=== PATIENT | male | born 1965 | race Caucasian/White ===

== ENCOUNTER → 2018-11-01 | Outpatient (CLI) | payer BC ==
--- NOTE | 2018-11-02 08:16 | XR ---
Cervical spine HISTORY: Neck pain 6 views of the cervical spine Patient is status post anterior cervical fusion and discectomy at C6-7. Loss of disc height present C 3-4, C5-6 with associated spondylosis. Cervical vertebral bodies show preserved height and bone salt miner alization. Alignment is near-anatomic. Foraminal encroachment present bilaterally at C3-4, C5-6. Loss of lordosis may be due to muscle spasm. Prevertebral soft tissues are unremarkable. IMPRESSION: Postop changes and degenerative disc disease.
== END | disposition home or self-care (01) ==
LOC: RADXRYALE 16:52
PROVIDERS: ATTEND Physician Assistant
DX: M50.30 Other cervical disc degeneration, unspecified cervical region (principal); Z98.890 Other specified postprocedural states
CPT/HCPCS: 72050

== ENCOUNTER → 2019-02-28 | Outpatient (CLI) | payer BC ==
--- NOTE | 2019-02-28 15:51 | XR ---
EXAMINATION TYPE: XR knee complete LT DATE OF EXAM: 02/28/2019 COMPARISON: NONE HISTORY: Swelling TECHNIQUE: Two views are submitted. FINDINGS: There is narrowing of patellofemoral joint and medial compartment knee joint. No erosive change. Supr apatellar bursal fluid collection noted. Ossification along the quadriceps insertion of the patella.. Osseous structures are intact. No acute fracture seen. IMPRESSION: 1. No acute fracture or dislocation. 2. Large suprapatellar bursal fluid collection. Ossification along the upper margin patella possibly related to quadriceps tendon. Follow-up MRI recommended. 3. Osteoarthritis.
== END | disposition home or self-care (01) ==
LOC: RADXRYALE 15:11
PROVIDERS: ATTEND Physician Assistant Medical
DX: M17.12 Unilateral primary osteoarthritis, left knee (principal); M71.862 Other specified bursopathies, left knee

== ENCOUNTER 2019-03-23 14:36 | Emergency (ER) | payer BC ==
[2019-03-23 14:41] VITALS: BP 109/77; PULSE 109; RESP 18; TEMP 97.8
--- NOTE | 2019-03-23 15:22 | XR ---
Left ankle HISTORY: Pain, history of fracture 3 views of the left ankle There is soft tissue swelling present. Ossific densities present distal to the medial malleolus. Alig nment, joint spaces, bone mineralization maintained. There is a plantar calcaneal spur. There is spur ring at the tibiotalar joint, intertarsal joints. impression: Soft tissue swelling. Ossific fragment distal to the medial malleolus is of questionable acuity. Correlate for point tenderness. Osteoarthritic changes.
[2019-03-23] MEDS ORDERED: ACET/COD 300 MG/30 MG STARTER PACK 6 TAB BTL PO STA (16:03)
--- NOTE | 2019-03-23 16:06 | US ---
EXAMINATION TYPE: US venous doppler duplex LE LT DATE OF EXAM: 03/23/2019 3:57 PM COMPARISON: NONE CLINICAL HISTORY: atraumatic swelling of the left LE.... C/o left ankle pain and swelling SIDE PERFORMED: Left TECHNIQUE: The lower extremity deep venous system is examined utilizing real time linear array sonog nasim with graded compression, doppler sonography and color-flow sonography. VESSELS IMAGED: Common Femoral Vein Deep Femoral Vein Greater Saphenous Vein * Femoral Vein Popliteal Vein Small Saphenous Vein * Proximal Calf Veins (* superficial vessels) Left Leg: Wall echoes are noted at valves at Left CFV and upper Femoral vein and may be stuck valves , otherwise is negative for DVT. There is normal flow, compressibility, vascular waveforms. IMPRESSION: No evident deep venous thrombosis at or above the left knee.
--- NOTE | 2019-03-23 16:26 | ED ---
Lower Extremity Injury HPI - General Chief Complaint: Extremity Injury, Lower Stated Complaint: left ankle injury Source: patient Mode of arrival: wheelchair Limitations: no limitations - History of Present Illness Initial Comments: 54-year-old male presenting today for chief complaint of left ankle swelling x 2 days. Patient states he has history of previous left ankle fracture as well as an ankle spur. He states the past 7-8 years about 3 times a year he has swelling and pain for about 7 days of the left ankle then it goes away. Denies new injury. He also states his history of gout he states he has not had a flare in his great toe and years. Patient denies any prophylactic medications. Patient denies any redness or warmth the ankle denies any fever or flulike symp toms. Patient states is very typical of his recurrent left ankle pain and swelling. Patient denies history of DVT or pulmonary embolism. Denies any history of clotting disorders or pain of the calf. Patient denies chest pain or shortness of breath. Remaining review of system negative. Upon arrival patient appears well no signs of acute distress. - Related Data Previous Rx's Medication Instructions Recorded Naproxen 500 mg PO BID 7 Days #14 tablet 03/23/19 Allergies Allergy/AdvReac Type Severity Reaction Status Date / Time No Known Allergies Allergy Verified 03/23/19 14:41 Review of Systems ROS Statement: Those systems with pertinent positive or pertinent negative responses have been documented in the HPI. ROS Other: All systems not noted in ROS Statement are negative. Past Medical History Past Medical History: Hyperlipidemia, Hypertension History of Any Multi-Drug Resistant Organisms: None Reported Additional Past Surgical History / Comment(s): NECK SURGERY Past Psychological History: No Psychological Hx Reported Smoking Status: Never smoker Past Alcohol Use History: Occasional Past Drug Use History: None Reported General Exam - General Exam Comments Initial Comments: General: The patient is awake and alert, in no distress, and does not appear acutely ill. Eye: pupils are equal, round and reactive to light, extra-ocular movements are intact. No nystagmus. There is normal conjunctiva bilaterally. No signs of icterus. Cardiovascular: There is a regular rate and rhythm. No murmur, rub or gallop is appreciated. Respiratory: Lungs are clear to auscultation, respirations are non-labored, breath sounds are equal. No wheezes, stridor, rales, or rhonchi. Musculoskeletal: Upon inspection of the ankles bilaterally there is soft tissue swelling noted over the ankle mortise of the left ankle. There is no warmth to palpation no redness. No pain out of proportion with both active and passive range of motion however patient does complain of discomfort. No pain of the right ankle. Patient is able to weight-bear. No point localized tenderness over the medial or lateral malleolus. Normal ROM, no tenderness of the knees her great toes. Strength 5/5. Sensation intact both proximal distal to affected site. Radial pulses equal bilaterally 2+. Compartment soft and compressible. Neurological: A&O x 3. CN II-XII intact, There are no obvious motor or sensory deficits. Coordination appears grossly intact. Speech is normal. Skin: Skin is warm and dry and no rashes or lesions are noted. (-) Mariannens b/l. Psychiatric: Cooperative, appropriate mood & affect, normal judgment. Limitations: no limitations Course Vital Signs 03/23/19 14:38 Temperature 97.8 F Pulse Rate 109 H Respiratory 18 Rate Blood Pressure 109/77 O2 Sat by Pulse 97 Oximetry Medical Decision Making - Medical Decision Making 54-year-old male presenting for H Russ left ankle pain. No convincing evidence of infection on physical examination. No redness or warmth. No flank symptoms or other constitutional symptoms patient afebrile upon arrival. Patient states this is identical to his previous exacerbations of left ankle swelling and pain that occurred 3 times a year. Patient has history of fracture as well as bone spur. Patient is not been evaluated by orthopedic surgery. Patient has no tenderness of the calf or history of DVT. Ultrasound revealed no acute DVT imaging studies did reveal a what appeared to be a chip fracture of the medial malleolus however there is no point localized tenderness and patient states he has history of a previous fracture. In addition there is noted to be bone spurring, as well as significant arthritis. At this time is unclear the exact etiology of patient's left ankle swelling most likely inflammatory. Patient be discharged with naproxen and orthopedic surgery follow-up. Return parameters were discussed at length patient verbalizes understanding. Patient has crutches to use at home for ambulation. Discussed case with Dr. Patton prior to discharge. Disposition Clinical Impression: Left ankle swelling, History of gout, Left ankle pain Disposition: HOME SELF-CARE Condition: Good Instructions (If sedation given, give patient instructions): *Surgery [facility] - Ankle Arthroscopy Home Instructions, Swollen Joint (ED) Additional Instructions: Please use medication as discussed. Please follow-up with family doctor in the next 2 days. Please return to emergency room if the symptoms increase or worsen or for any other concerns. Prescriptions: Naproxen 500 mg PO BID 7 Days #14 tablet Is patient prescribed a controlled substance at d/c from ED?: No Referrals: Andres Sommers DO [Primary Care Provider] - 1-2 days Hoang Lilly MD [STAFF PHYSICIAN] - 1-2 days Time of Disposition: 16:25
== END 2019-03-23 16:30 | disposition home or self-care (01) ==
LOC: EC 14:36
DX: M25.572 Pain in left ankle and joints of left foot (principal); M79.89 Other specified soft tissue disorders; M10.9 Gout, unspecified; M19.072 Primary osteoarthritis, left ankle and foot; Z87.81 Personal history of (healed) traumatic fracture
CPT/HCPCS: 99284

== ENCOUNTER → 2019-04-21 | Outpatient (CLI) | payer BC ==
[2019-04-21 20:04] LABS: Appearance,BF Cloudy; Color,BF Yellow; Mononuclear WBC,Body Fluid 17 %; Nucleated Cells, Body Fluid 45800 /uL; Polynuclear WBC,Body Fluid 83 %; RBC, Body Fluid 600 /uL
== END | disposition home or self-care (01) ==
LOC: LABWHC1 15:35
PROVIDERS: ATTEND Physician Assistant
DX: M25.562 Pain in left knee (principal); M23.8X2 Other internal derangements of left knee; E78.5 Hyperlipidemia, unspecified; M17.12 Unilateral primary osteoarthritis, left knee; Z68.37 Body mass index [BMI] 37.0-37.9, adult
CPT/HCPCS: 87070; 87075; 87205; 89050; 89060

== ENCOUNTER 2022-11-25 08:14 | Day surgery (SDC) | payer OTHER ==
[~2022-11-25 08:14] MED LIST: LACTATED RINGERS 1,000 ML IV SCH; LIDOCAINE 1% (10MG/ML) FOR IV START INTRADERMA PRN
[2022-11-25 08:53] VITALS: RESP 16; TEMP 98.3
[2022-11-25] MEDS ORDERED: PROPOFOL 10 MG/ML 20 ML VIAL IV ONE (09:52)
--- NOTE | 2022-11-25 10:05 | P.PCN ---
Date of Procedure: 11/25/22 Procedure(s) Performed: BRIEF HISTORY: Patient is a 57-year-old pleasant white male scheduled for an elective colonoscopy as a part of screening for colon cancer. His last colonoscopy was 10 years ago PROCEDURE PERFORMED: Colonoscopy with snare polyp rectum. PREOPERATIVE DIAGNOSIS: Screening for colon cancer. IV sedation per Anesthesia. PROCEDURE: After informed consent was obtained, the patient, was brought into the endoscopy unit. IV sedation was administered by Anesthesia under continuous monitoring. Digital rectal examination was normal. Initially the Olympus CF-160 flexible video colonoscope was then inserted in the rectum, gradually advanced into the cecum without any difficulty. Careful examination was performed as the scope was gradually being withdrawn. Ileocecal valve and the appendiceal orifice were visualized and appeared normal. Prep was excellent. Mucosa of the cecum, ascending colon, appeared normal. In the transverse colon there was a 5 mm polyp that was removed by snare polypectomy. Rest of the transverse colon, descending colon, sigmoid colon, and rectum appeared normal. Retroflexion was performed in the rectum and no lesions were seen. The patient tolerated the procedure well. IMPRESSION: 5 mm transverse colon polyp status post polypectomy Rest of the colon appeared normal RECOMMENDATIONS: Findings of this examination were discussed with the patient as well as his family.. He was advised to follow with the biopsy sites. The biopsy was adenoma he can have a repeat colonoscopy in 5 years.
[2022-11-25 10:51] VITALS: BP 116/63; PULSE 90
== END 2022-11-25 10:48 | disposition home or self-care (01) ==
LOC: ORWHC2ENDO 08:14
PROVIDERS: ATTEND Internal Medicine Gastroenterology
DX: Z12.11 Encounter for screening for malignant neoplasm of colon (principal); D12.3 Benign neoplasm of transverse colon; I10 Essential (primary) hypertension; E78.5 Hyperlipidemia, unspecified; Z79.899 Other long term (current) drug therapy
CPT/HCPCS: 88305; 45385; J2704

== ENCOUNTER → 2023-01-29 | Outpatient (CLI) | payer OTHER ==
--- NOTE | 2023-01-29 10:32 | XR ---
EXAMINATION TYPE: XR knee complete LT DATE OF EXAM: 01/29/2023 COMPARISON: 02/28/2019 HISTORY: Pain TECHNIQUE: Three views are submitted. FINDINGS: Mild narrowing of the medial compartment of the knee joint. Diffuse osteopenia. Osseous structures a re intact. No acute fracture seen. Ossification along the upper margin patella possibly related to quadriceps tendon. Follow-up MRI recommended. . There is a small suprapatellar bursal fluid collection. IMPRESSION: 1. No acute fracture or dislocation. 2. Moderate osteoarthritis. There is a small amount of suprapatellar bursa which can be associated wi th internal derangement of knee. Consider follow-up MRI.
== END | disposition home or self-care (01) ==
LOC: RADXRYALE 10:04
PROVIDERS: ATTEND Physician Assistant
DX: M17.12 Unilateral primary osteoarthritis, left knee (principal)

== ENCOUNTER 2024-01-26 07:43 | Day surgery (SDC) | payer OTHER ==
[2024-01-25 13:24] VITALS: BMI 33.2
[~2024-01-26 07:43] MED LIST changes: +HYDROmorphone 0.5 MG/0.5 ML SYRINGE IVP PRN; -LACTATED RINGERS 1,000 ML IV SCH; +Pre Op ABX Message 1 EACH MISC MISCELLANE ONE; +droPERidol 5 MG/2 ML VIAL IVP ONE
[2024-01-26 08:17] LABS: Glucose,Whole Blood 111 mg/dL (70-110)
[2024-01-26] MEDS: LACTATED RINGERS 1,000 ML IV SCH (08:20)
[2024-01-26] MEDS: ACETAMINOPHEN TAB 500 MG TAB PO PRN (08:21)
[2024-01-26] MEDS: ONDANSETRON 4 MG/2 ML VIAL IVP ONE (08:22)
[2024-01-26] MEDS: HEPARIN SODIUM,PORCINE 5,000 UNIT/ML 1 ML VIAL SQ PRN (08:23)
[2024-01-26] MEDS: IV FLUID CONTINUATION 1,000 ML IV ONE (08:24)
--- NOTE | 2024-01-26 08:48 | P.GSHP ---
History of Present Illness H&P Date: 01/26/24 Chief Complaint: last posterior cervical lymph node this is a 4-year-old male who has a left posterior cervical lymph node which enlarged. Patient resents today for excisional biopsy. Past Medical History Past Medical History: Hyperlipidemia, Hypertension History of Any Multi-Drug Resistant Organisms: None Reported Additional Past Surgical History / Comment(s): NECK SURGERY Past Anesthesia/Blood Transfusion Reactions: No Reported Reaction Past Drug Use History: None Reported - Past Family History Mother Family Medical History: No Reported History Medications and Allergies Home Medications Medication Instructions Recorded Confirmed Type Rosuvastatin Calcium 40 mg PO DAILY 11/21/22 01/26/24 History carvediloL [Coreg] 25 mg PO BID 11/21/22 01/26/24 History Empagliflozin [Jardiance] 10 mg PO DAILY 01/25/24 01/26/24 History Allergies Allergy/AdvReac Type Severity Reaction Status Date / Time No Known Allergies Allergy Verified 01/26/24 07:56 Surgical - Exam Vital Signs Temp Pulse Resp BP Pulse Ox 97.5 F L 73 18 144/85 96 01/26/24 07:57 01/26/24 07:57 01/26/24 07:57 01/26/24 07:57 01/26/24 07:57 - General well developed, well nourished, no distress - Eyes PERRL - ENT normal pinna - Neck 3 cm left posterior cervical lymph node enlarged - Respiratory normal expansion - Cardiovascular Rhythm: regular - Abdomen Abdomen: soft, non tender Results - Labs Abnormal Lab Results - Last 24 Hours (Table) 01/26/24 Range/Units 08:14 POC Glucose (mg/dL) 111 H (70-110) mg/dL Assessment and Plan Assessment: left posterior cervical lymph node. We'll perform excisional biopsy
[2024-01-26] MEDS: LIDOCAINE 2%-EPI 1:100,000 20 ML VIAL SQ ONE ×2 (09:16→09:48)
[2024-01-26] MEDS ORDERED: MIDAZOLAM 2 MG/2 ML VIAL ONE (09:19)
[2024-01-26] MEDS ORDERED: PHENYLEPHRINE 10 MG/ML VIAL ONE (09:19)
[2024-01-26] MEDS ORDERED: PROPOFOL 10 MG/ML 20 ML VIAL IV ONE (09:19)
[2024-01-26] MEDS ORDERED: LIDOCAINE 1% INJ 10MG/ML (20 ML MDV) ONE (09:19)
[2024-01-26] MEDS ORDERED: fentaNYL (PF) 50 MCG/ML 2 ML AMP ONE (09:19)
--- NOTE | 2024-01-26 09:58 | P.OP ---
Date of Procedure: 01/26/24 Preoperative Diagnosis: left posterior cervical lymphadenopathy Postoperative Diagnosis: defer to pathology Procedure(s) Performed: excision of left posterior cervical lymphadenopathy Anesthesia: LAZARO Surgeon: Eugene Casas Estimated Blood Loss (ml): 3 Pathology: other (lymph node) Condition: stable Disposition: PACU Description of Procedure: the patient's placed on the operative table in the lateral position after receiving general anesthesia. His posterior neck was prepped and draped usual fashion. The skin was incised in elliptical. Then using blunt and sharp dissection with cautery the lymph node was dissected free. Hemostasis was achieved with cautery. The skin was closed interrupted 3-0 Monocryl suture. Dermabond dressing applied. Patient top she will present to recovery in stable condition.
[2024-01-26 10:03] VITALS: TEMP 97.3
[2024-01-26 10:39] VITALS: RESP 16
[2024-01-26 10:56] VITALS: BP 147/85; PULSE 69
== END 2024-01-26 11:03 | disposition home or self-care (01) ==
LOC: OR 07:43
PROVIDERS: ATTEND Surgery
DX: R59.0 Localized enlarged lymph nodes (principal); E78.5 Hyperlipidemia, unspecified; I10 Essential (primary) hypertension; Z79.84 Long term (current) use of oral hypoglycemic drugs; Z79.899 Other long term (current) drug therapy
CPT/HCPCS: 88305; 38510; J2250; J1644; J2405; J2001; J3010; J2704; J2371

== ENCOUNTER → 2024-11-15 | Outpatient (CLI) | payer OTHER ==
--- NOTE | 2024-11-15 16:19 | XR ---
EXAMINATION TYPE: XR lumbosacral spine min 4V DATE OF EXAM: 11/15/2024 4:09 PM INDICATION: Patient age:Male; 59 years old; Reason for study: [id number] LBP; [facility]. pain COMPARISON: None TECHNIQUE: Frontal, lateral , bilateral oblique and coned in L5-S1 lateral views of the spine. FINDINGS: There are 5 lumbar type vertebral bodies identified. No evidence of any acute osseous patho logy. No evidence of loss of vertebral body height is seen. There is normal alignment of the lumbar vertebral bodies. Multilevel disc space narrowing with endplate sclerosis and anterior osteophytosis. IMPRESSION: 1. No acute process. 2. Mild multilevel degenerative disc disease. [facility], , 11/15/2024 4:16 PM
== END | disposition home or self-care (01) ==
LOC: RADXRYALE 15:56
PROVIDERS: ATTEND Physician Assistant Medical
DX: M51.360 Other intervertebral disc degeneration, lumbar region with discogenic back pain only (principal)
CPT/HCPCS: 72110

== ENCOUNTER 2025-02-06 08:57 | Emergency (ER) | payer OTHER ==
--- NOTE | 2025-02-06 09:19 | ED ---
Extremity Problem HPI - General Chief complaint: Extremity Problem,Nontraumatic Stated complaint: Left knee pain Time Seen by Provider: 02/06/25 09:06 Source: patient, RN notes reviewed Mode of arrival: ambulatory Limitations: no limitations - History of Present Illness Initial comments: This is a 60-year-old male who presents to the emergency department for left leg pain. States that for the last 3 days he has had pain and aching behind the left knee. Denies any injuries. This is worse when he tries to bend the leg. Pain does not radiate anywhere. States that he is concerned about a blood clot. Denies any history of blood clots. Not taking any blood thinners. Denies any chest pain or shortness of breath. MD Complaint: extremity pain - Related Data Home Medications Medication Instructions Recorded Confirmed Rosuvastatin Calcium 40 mg PO DAILY 11/21/22 01/26/24 carvediloL [Coreg] 25 mg PO BID 11/21/22 01/26/24 Empagliflozin [Jardiance] 10 mg PO DAILY 01/25/24 01/26/24 Previous Rx's Medication Instructions Recorded Acetaminophen Tab [Tylenol] 650 mg PO Q6H #30 tab 01/26/24 Ibuprofen [Motrin] 600 mg PO Q6HR PRN #40 tab 01/26/24 Allergies Allergy/AdvReac Type Severity Reaction Status Date / Time No Known Allergies Allergy Verified 02/06/25 09:05 Review of Systems ROS Statement: Those systems with pertinent positive or pertinent negative responses have been documented in the HPI. ROS Other: All systems not noted in ROS Statement are negative. Past Medical History Past Medical History: Hyperlipidemia, Hypertension History of Any Multi-Drug Resistant Organisms: None Reported Additional Past Surgical History / Comment(s): NECK SURGERY to remove cyst Past Anesthesia/Blood Transfusion Reactions: No Reported Reaction Past Psychological History: No Psychological Hx Reported Smoking Status: Never smoker Past Alcohol Use History: Occasional Past Drug Use History: None Reported - Past Family History Mother Family Medical History: No Reported History General Exam Limitations: no limitations General appearance: alert, in no apparent distress Head exam: Present: atraumatic, normocephalic, normal inspection Respiratory exam: Present: normal lung sounds bilaterally. Absent: respiratory distress, wheezes, rales, rhonchi, stridor Cardiovascular Exam: Present: regular rate, normal rhythm Extremities exam: Present: other (No swelling, erythema, or tenderness. Range of motion induces pain in the popliteal fossa. 2+ DP and PT pulses) Neurological exam: Present: alert, oriented X3, CN II-XII intact Psychiatric exam: Present: normal affect, normal mood Skin exam: Present: warm, dry, intact, normal color. Absent: rash Course Vital Signs 02/06/25 02/06/25 09:00 10:29 Temperature 98.8 F 98.1 F Pulse Rate 81 87 Respiratory 18 20 Rate Blood Pressure 153/93 156/94 O2 Sat by Pulse 97 96 Oximetry Medical Decision Making - Medical Decision Making This is a 60 year old male who presents to the emergency department for left knee pain. Was pt. sent in by a medical professional or institution? @ -No Did you speak to anyone other than the patient for history? @ -No Did you review nursing and triage notes? @ -Yes, and I agree, it is accurate with regards to the patient's symptoms. Were old charts reviewed? @ -No Differential Diagnosis? @ -Differential Musculoskeletal Muscular strain, contusion, ligament sprain, fracture, arthritis, septic arthri tis, bursitis, cellulitis, muscle spasm, nerve compression, DVT, arterial occlusion, herpes zoster, electrolyte abnormality, tumor.... This is not meant to be in all inclusive list EKG interpreted by me (3pts min.)? @ -Not obtained X-rays interpreted by me (1pt min.)? @ -Not obtained CT interpreted by me (1pt min.)? @ -Not obtained U/S interpreted by me (1pt. min.)? @ -Duplex ultrasound of the left lower extremity obtained. My interpretation identifies no evidence of a DVT. What testing was considered but not performed? (CT, X-rays, U/S, labs)? Why? @ -None What meds were considered but not given? Why? @ -None Did you discuss the management of the patient with other professionals? @ -No Did you reconcile home meds? @ -No Was smoking cessation discussed for >3mins.? @ -No Was critical care preformed (if so, how long)? @ -No Were there social determinants of health that impacted care today? How? (Homelessness, low income, unemployed, alcoholism, drug addiction, transportation, low edu. Level, literacy, decrease access to med. care, fpc, rehab)? @ -No Was there de-escalation of care discussed even if they declined? (Discuss DNR or withdrawal of care, Hospice)? @ -No What co-morbidities impacted this encounter? (DM, HTN, Smoking, COPD, CAD, Cancer, CVA, Hep., AIDS, mental health diagnosis, sleep apnea, morbid obesity)? @ -HTN, HLD Was patient admitted / discharged? @ -Discharged. Duplex ultrasound of the left lower extremity obtained revealing no evidence of a DVT. They did note a possible joint effusion. He did have some mild swelling over the knee and this is certainly a possibility. Advised anti-inflammatories, elevation, and compression to help with the effusion and overall symptoms. He has followed up with orthopedics in the past and I advised he contact them for a follow-up appointment if symptoms persist. Patient discharged home in stable condition. Case discussed with ED attending Dr. Adam. Return precautions reviewed in depth, the patient is instructed to return to the emergency department with any new, worsening, or concerning symptoms. Patient verbalized understanding. Undiagnosed new problem with uncertain prognosis? @ -None Drug Therapy requiring intensive monitoring for toxicity (Heparin, Nitro, Insulin, Cardizem)? @ -None Were any procedures done? @ -None Diagnosis/symptom? @ -Left knee pain, joint effusion Acute, or Chronic, or Acute on Chronic? @ -Acute Uncomplicated (without systemic symptoms) or Complicated (systemic symptoms)? @ -Uncomplicated Side effects of treatment? @ -None Exacerbation, Progression, or Severe Exacerbation] @ -Not applicable Poses a threat to life or bodily function? @ -No - Radiology Data Radiology results: report reviewed, image reviewed Disposition Clinical Impression: Left knee pain, Joint effusion of knee Disposition: HOME SELF-CARE Instructions (If sedation given, give patient instructions): Swollen Knee Joint (ED), Knee Pain (ED) Additional Instructions: Return to the emergency department with any new, worsening, or concerning symptoms. Alternate with ibuprofen and Tylenol as needed for discomfort. You can also elevate the leg and ice it. Follow-up with orthopedics if your symptoms do not improve. Follow up with your primary care provider in 1-2 days. Is patient prescribed a controlled substance at d/c from ED?: No Referrals: Andres Sommers DO [Primary Care Provider] - 1-2 days Monster Pacheco MD [Medical Doctor] - 1-2 days Time of Disposition: 10:14
--- NOTE | 2025-02-06 09:50 | US ---
EXAMINATION TYPE: US venous doppler duplex LE LT DATE OF EXAM: 02/06/2025 9:36 AM COMPARISON: 03/23/2019 CLINICAL INDICATION: Male, old with history of Left leg pain; Posterior left knee pain - unable to be nd knee; Patient denies any other signs, symptoms, or relevant history. TECHNIQUE: The lower extremity deep venous system is examined utilizing real time linear array sonog nasim with graded compression, color doppler sonography, and spectral doppler. SIDE PERFORMED: Left FINDINGS: VESSELS IMAGED: Common Femoral Vein Deep Femoral Vein Greater Saphenous Vein * Femoral Vein Popliteal Vein Small Saphenous Vein * Proximal Calf Veins (* superficial vessels) Left Leg: Negative for DVT, Color Doppler imaging shows patency of the vessels. Spectral waveforms a re within normal limits. ? Left knee effusion IMPRESSION: 1. Left lower extremity ultrasound negative for deep venous thrombosis. 2. Left knee joint effusion may be present. [facility], , 02/06/2025 9:48 AM
[2025-02-06 10:31] VITALS: BP 156/94; PULSE 87; RESP 20; TEMP 98.1
== END 2025-02-06 10:29 | disposition home or self-care (01) ==
LOC: EC 08:57
DX: M25.462 Effusion, left knee (principal); M25.562 Pain in left knee; I10 Essential (primary) hypertension; E78.5 Hyperlipidemia, unspecified
CPT/HCPCS: 99283

== ENCOUNTER → 2025-03-21 | Outpatient (CLI) | payer OTHER ==
--- NOTE | 2025-03-21 16:29 | XR ---
EXAMINATION TYPE: XR wrist complete LT DATE OF EXAM: 03/21/2025 4:23 PM INDICATION: Patient age:Male; 60 years old; Reason for study: [id number] FANNIE HAND PAIN, INJURY; [facility]. pain COMPARISON: Bilateral hand radiograph of the same date. TECHNIQUE: 4 views of the left wrist. Frontal, navicular, lateral, and oblique. FINDINGS: No acute osseous pathology, joint dislocation, or joint effusion. Degenerative changes of the CMC joint. Soft tissue swelling the dorsal hand. No radiopaque foreign body. No osseous erosions. IMPRESSION: 1. No acute osseous pathology. 2. Soft tissue swelling of the dorsal hand. 3. Degenerative changes of the CMC joint. [facility], , 03/21/2025 4:26 PM
--- NOTE | 2025-03-21 16:30 | XR ---
EXAMINATION TYPE: XR hand complete bilateral DATE OF EXAM: 03/21/2025 4:23 PM INDICATION: Patient age:Male; 60 years old; Reason for study: [id number] FANNIE HAND PAIN, INJURY; [facility]. pain COMPARISON: Left wrist radiograph the same date TECHNIQUE: Frontal, lateral and oblique views of both hands were obtained. FINDINGS: Normal alignment of the visualized joints. No acute osseous pathology is identified. Soft tissue swelling in the dorsal left hand. No significant soft tissue swelling of the right hand. No ra diopaque foreign body. Degenerative changes of the bilateral CMC joints. IMPRESSION: 1. No acute osseous pathology. 2. Soft tissue swelling of the dorsal left hand. 3. Degenerative changes of the bilateral CMC joints. [facility], , 03/21/2025 4:28 PM
== END | disposition home or self-care (01) ==
LOC: RADXRYALE 16:00
PROVIDERS: ATTEND Physician Assistant Medical
DX: M18.11 Unilateral primary osteoarthritis of first carpometacarpal joint, right hand (principal); M18.12 Unilateral primary osteoarthritis of first carpometacarpal joint, left hand; M79.89 Other specified soft tissue disorders